=== PATIENT | female | born 1960 | race Caucasian/White ===

== ENCOUNTER → 2017-10-03 | Outpatient (CLI) | payer OTHER | LOC: M.LAB 14:58 | DX: M81.0 Age-related osteoporosis without current pathological fracture (principal) ==

== ENCOUNTER → 2017-10-05 | Outpatient (CLI) | payer OTHER | LOC: M.LAB 09:36 | DX: M81.0 Age-related osteoporosis without current pathological fracture (principal) ==

== ENCOUNTER → 2017-12-19 | Outpatient (CLI) | payer OTHER ==
[2017-12-19 10:17] LABS: ABSOLUTE EOSINOPHILS 0.2 thou/uL (0.0-0.7); ABSOLUTE LYMPHOCYTES 1.5 thou/uL (0.8-5.3); ABSOLUTE MONOCYTES 0.4 thou/uL (0.0-1.2); ABSOLUTE NEUTROPHILS 3.5 thou/uL (1.6-8.1); BASOPHILS 0.7 %; EOSINOPHILS 2.7 %; HEMATOCRIT 44.8 % (37.0-47.0); HEMOGLOBIN 14.9 gm/dL (12.0-15.0); LYMPHOCYTES 26.8 %; MCHC 33.3 g/dL (28.0-37.0); MONOCYTES 7.4 %; MPV 7.1 fl. (7.2-11.1); NUCLEATED RBCS 0 /100WBC; PLATELET COUNT* 290 thou/uL (150-400); POLYS 62.4 %; RBC 4.82 mil/uL (4.20-5.00); WBC 5.6 thou/uL (4.0-11.0)
[2017-12-19 10:49] LABS: ALBUMIN 4.2 g/dL (3.4-5.0); ALKALINE PHOSPHATASE 64 U/L (46-116); ANION GAP 7 mmol/L (7-16); BUN 21 mg/dL (7-18); CALCIUM 9.7 mg/dL (8.5-10.1); CHLORIDE 101 mmol/L (98-107); CHOLESTEROL 301 mg/dL (<200); CO2 30 mmol/L (21-32); GLUCOSE 92 mg/dL (70-99); HDL CHOLESTEROL 123 mg/dL (>40); LDL CHOLESTEROL 164 mg/dL (<100); POTASSIUM 4.3 mmol/L (3.5-5.1); SGOT 16 U/L (15-37); SGPT 25 U/L (30-65); SODIUM 138 mmol/L (136-145); TC:HDL 2.4 Ratio (Not establshd); TOTAL BILIRUBIN 0.4 mg/dL (<0.1-1.0); TOTAL PROTEIN 7.7 g/dL (6.4-8.2); TRIGLYCERIDE 74 mg/dL (<150); VLDL 15 mg/dL (<40)
[2017-12-19 10:52] LABS: SERUM ASSESSMENT Clear
== END ==
LOC: M.LAB 09:56
PROVIDERS: Family Medicine
DX: Z00.00 Encounter for general adult medical examination without abnormal findings (principal); N92.0 Excessive and frequent menstruation with regular cycle; N84.0 Polyp of corpus uteri

== ENCOUNTER → 2018-04-26 | Outpatient (CLI) | payer OTHER | LOC: M.RAD 04-19 13:00 | DX: Z12.31 Encounter for screening mammogram for malignant neoplasm of breast (principal) ==

== ENCOUNTER → 2018-07-05 | Outpatient (CLI) | payer OTHER | LOC: M.RAD 08:29 | DX: S52.615A Nondisplaced fracture of left ulna styloid process, initial encounter for closed fracture (principal); S52.502A Unspecified fracture of the lower end of left radius, initial encounter for closed fracture; Z88.8 Allergy status to other drugs, medicaments and biological substances; W19.XXXA Unspecified fall, initial encounter; Y93.89 Activity, other specified; Y92.89 Other specified places as the place of occurrence of the external cause; Y99.8 Other external cause status ==

== ENCOUNTER → 2018-07-12 | Outpatient (CLI) | payer OTHER | LOC: M.RAD 12:39 | DX: S52.532A Colles' fracture of left radius, initial encounter for closed fracture (principal); S52.612A Displaced fracture of left ulna styloid process, initial encounter for closed fracture; X58.XXXA Exposure to other specified factors, initial encounter; Y93.89 Activity, other specified; Y92.89 Other specified places as the place of occurrence of the external cause; Y99.8 Other external cause status ==

== ENCOUNTER → 2018-07-19 | Outpatient (CLI) | payer OTHER | LOC: M.RAD 12:22 | DX: S52.615D Nondisplaced fracture of left ulna styloid process, subsequent encounter for closed fracture with routine healing (principal); S52.502D Unspecified fracture of the lower end of left radius, subsequent encounter for closed fracture with routine healing; W19.XXXD Unspecified fall, subsequent encounter ==

== ENCOUNTER → 2018-07-26 | Outpatient (CLI) | payer OTHER | LOC: M.RAD 10:31 | DX: S52.512D Displaced fracture of left radial styloid process, subsequent encounter for closed fracture with routine healing (principal); S52.612D Displaced fracture of left ulna styloid process, subsequent encounter for closed fracture with routine healing; X58.XXXD Exposure to other specified factors, subsequent encounter ==

== ENCOUNTER → 2018-08-02 | Outpatient (CLI) | payer OTHER | LOC: M.RAD 12:21 | DX: S52.592D Other fractures of lower end of left radius, subsequent encounter for closed fracture with routine healing (principal); S52.612D Displaced fracture of left ulna styloid process, subsequent encounter for closed fracture with routine healing; X58.XXXD Exposure to other specified factors, subsequent encounter ==

== ENCOUNTER → 2018-08-09 | Outpatient (CLI) | payer OTHER | LOC: M.RAD 12:27 | DX: S52.512A Displaced fracture of left radial styloid process, initial encounter for closed fracture (principal); X58.XXXA Exposure to other specified factors, initial encounter; Y93.89 Activity, other specified; Y92.89 Other specified places as the place of occurrence of the external cause; Y99.8 Other external cause status ==

== ENCOUNTER → 2018-08-16 | Outpatient (CLI) | payer OTHER | LOC: M.RAD 12:32 | DX: S52.612D Displaced fracture of left ulna styloid process, subsequent encounter for closed fracture with routine healing (principal); S52.592D Other fractures of lower end of left radius, subsequent encounter for closed fracture with routine healing; X58.XXXD Exposure to other specified factors, subsequent encounter ==

== ENCOUNTER → 2018-10-18 | Outpatient (CLI) | payer OTHER | LOC: M.RAD 12:58 → M.ULTRA 14:00 → M.RAD 14:20 | DX: N63.20 Unspecified lump in the left breast, unspecified quadrant (principal); Z88.8 Allergy status to other drugs, medicaments and biological substances ==

== ENCOUNTER → 2018-11-06 | Outpatient (CLI) | payer OTHER | LOC: M.LAB 11:26 | DX: M81.0 Age-related osteoporosis without current pathological fracture (principal) ==

== ENCOUNTER → 2018-12-26 | Outpatient (CLI) | payer OTHER | LOC: M.RAD 12-25 15:30 | DX: M85.89 Other specified disorders of bone density and structure, multiple sites (principal); M81.0 Age-related osteoporosis without current pathological fracture; E78.2 Mixed hyperlipidemia; Z78.0 Asymptomatic menopausal state; E28.39 Other primary ovarian failure ==

== ENCOUNTER → 2018-12-26 | Outpatient (CLI) | payer OTHER ==
[2018-12-26 11:19] LABS: HEMOGLOBIN 14.8 gm/dL (12.0-15.0); MPV 6.9 fl. (7.2-11.1); POLYS 55.5 %
[2018-12-26 11:21] LABS: ABSOLUTE EOSINOPHILS 0.1 thou/uL (0.0-0.7); ABSOLUTE LYMPHOCYTES 1.5 thou/uL (0.8-5.3); ABSOLUTE MONOCYTES 0.4 thou/uL (0.0-1.2); ABSOLUTE NEUTROPHILS 2.6 thou/uL (1.6-8.1); EOSINOPHILS 2.6 %; HEMATOCRIT 43.9 % (37.0-47.0); LYMPHOCYTES 31.7 %; MCH 31.5 pg (26.0-34.0); MCHC 33.8 g/dL (28.0-37.0); MONOCYTES 9.2 %; NUCLEATED RBCS 0 /100WBC; PLATELET COUNT* 312 thou/uL (150-400); RBC 4.71 mil/uL (4.20-5.00); RDW-CV 12.8 % (10.5-14.5); WBC 4.6 thou/uL (4.0-11.0)
[2018-12-26 11:42] LABS: ALBUMIN 4.1 g/dL (3.4-5.0); ALKALINE PHOSPHATASE 59 U/L (46-116); ANION GAP 10 mmol/L (7-16); BUN 9 mg/dL (7-18); CALCIUM 9.2 mg/dL (8.5-10.1); CHLORIDE 103 mmol/L (98-107); CHOLESTEROL 285 mg/dL (<200); CO2 28 mmol/L (21-32); CREATININE 0.9 mg/dL (0.6-1.3); GLUCOSE 81 mg/dL (70-99); HDL CHOLESTEROL 112 mg/dL (>40); LDL CHOLESTEROL 158 mg/dL (<100); POTASSIUM 4.3 mmol/L (3.5-5.1); SERUM ASSESSMENT Clear; SGOT 20 U/L (15-37); SGPT 35 U/L (30-65); SODIUM 141 mmol/L (136-145); TC:HDL 2.5 Ratio (Not establshd); TOTAL BILIRUBIN 0.4 mg/dL (<0.1-1.0); TOTAL PROTEIN 7.3 g/dL (6.4-8.2); TRIGLYCERIDE 75 mg/dL (<150); VLDL 15 mg/dL (<40)
== END ==
LOC: M.CT 10:28
PROVIDERS: Family Medicine
DX: Z13.6 Encounter for screening for cardiovascular disorders (principal); E78.2 Mixed hyperlipidemia; M81.0 Age-related osteoporosis without current pathological fracture; Z88.8 Allergy status to other drugs, medicaments and biological substances

== ENCOUNTER → 2019-05-02 | Outpatient (CLI) | payer OTHER | LOC: M.RAD 12:53 | DX: Z12.31 Encounter for screening mammogram for malignant neoplasm of breast (principal); N64.89 Other specified disorders of breast ==

== ENCOUNTER → 2019-07-03 | Outpatient (CLI) | payer OTHER | LOC: M.LAB 08:56 | DX: Z20.828 Contact with and (suspected) exposure to other viral communicable diseases (principal) ==

== ENCOUNTER → 2019-12-26 | Outpatient (CLI) | payer OTHER ==
[2019-12-26 10:18] LABS: HEMOGLOBIN 14.5 gm/dL (12.0-15.0); MCH 31.2 pg (26.0-34.0); MCHC 33.7 g/dL (28.0-37.0); MCV 92.7 fL (80.0-100.0); RBC 4.64 mil/uL (4.20-5.00); RDW-CV 12.8 % (10.5-14.5)
[2019-12-26 10:28] LABS: ALBUMIN 4.6 g/dL (3.4-5.0); ALKALINE PHOSPHATASE 67 U/L (46-116); ANION GAP 7 mmol/L (7-16); BUN 16 mg/dL (7-18); CALCIUM 9.8 mg/dL (8.5-10.1); CHLORIDE 100 mmol/L (98-107); CHOLESTEROL 258 mg/dL (<200); CO2 31 mmol/L (21-32); CREATININE 1.1 mg/dL (0.6-1.3); GLUCOSE 89 mg/dL (70-99); HDL CHOLESTEROL 128 mg/dL (>40); LDL CHOLESTEROL 117 mg/dL (<100); POTASSIUM 4.3 mmol/L (3.5-5.1); SERUM ASSESSMENT Clear; SGOT 28 U/L (15-37); SGPT 30 U/L (30-65); SODIUM 138 mmol/L (136-145); TOTAL BILIRUBIN 0.3 mg/dL (<0.1-1.0); TOTAL PROTEIN 8.2 g/dL (6.4-8.2); TRIGLYCERIDE 67 mg/dL (<150); VLDL 13 mg/dL (<40)
== END ==
LOC: M.LAB 09:45
PROVIDERS: ATTEND Family Medicine
DX: E78.2 Mixed hyperlipidemia (principal); M81.0 Age-related osteoporosis without current pathological fracture; Z91.89 Other specified personal risk factors, not elsewhere classified

== ENCOUNTER → 2020-04-29 | Outpatient (CLI) | payer OTHER | LOC: M.RAD 15:28 | PROVIDERS: ATTEND Family Medicine | DX: Z12.31 Encounter for screening mammogram for malignant neoplasm of breast (principal) ==

== ENCOUNTER → 2020-12-31 | Outpatient (CLI) | payer OTHER ==
[2020-12-31 10:24] LABS: ABSOLUTE EOSINOPHILS 0.1 thou/uL (0.0-0.7); ABSOLUTE LYMPHOCYTES 1.3 thou/uL (0.8-5.3); ABSOLUTE MONOCYTES 0.3 thou/uL (0.0-1.2); ABSOLUTE NEUTROPHILS 2.4 thou/uL (1.6-8.1); BASOPHILS 0.9 %; EOSINOPHILS 2.4 %; HEMATOCRIT 47.2 % (37.0-47.0); HEMOGLOBIN 15.6 gm/dL (12.0-15.0); LYMPHOCYTES 31.3 %; MCH 30.3 pg (26.0-34.0); MCV 91.7 fL (80.0-100.0); MPV 6.9 fl. (7.2-11.1); NUCLEATED RBCS 0 /100WBC; PLATELET COUNT* 290 thou/uL (150-400); POLYS 57.4 %; RBC 5.15 mil/uL (4.20-5.00); WBC 4.2 thou/uL (4.0-11.0)
[2020-12-31 10:36] LABS: ALBUMIN 4.9 g/dL (3.4-5.0); ALKALINE PHOSPHATASE 74 U/L (46-116); ANION GAP 8 mmol/L (7-16); BUN 10 mg/dL (7-18); CALCIUM 10.2 mg/dL (8.5-10.1); CHLORIDE 101 mmol/L (98-107); CHOLESTEROL 280 mg/dL (<200); CO2 31 mmol/L (21-32); GLUCOSE 90 mg/dL (70-99); HDL CHOLESTEROL 140 mg/dL (>40); LDL CHOLESTEROL 128 mg/dL (<100); POTASSIUM 4.1 mmol/L (3.5-5.1); SGOT 26 U/L (15-37); SGPT 40 U/L (30-65); SODIUM 140 mmol/L (136-145); TOTAL BILIRUBIN 0.6 mg/dL (<0.1-1.0); TOTAL PROTEIN 8.7 g/dL (6.4-8.2); TRIGLYCERIDE 60 mg/dL (<150); VLDL 12 mg/dL (<40)
[2020-12-31 10:37] LABS: SERUM ASSESSMENT Clear
[2020-12-31 21:06] LABS: TESTOSTERONE < 3 ng/dL (4-50)
== END ==
LOC: M.RAD 09:46
PROVIDERS: ATTEND Family Medicine
DX: Z00.00 Encounter for general adult medical examination without abnormal findings (principal); M81.0 Age-related osteoporosis without current pathological fracture; E78.2 Mixed hyperlipidemia

== ENCOUNTER → 2021-01-01 | Outpatient (CLI) | payer OTHER | LOC: M.CT 11:02 | PROVIDERS: ATTEND Family Medicine | DX: Z13.6 Encounter for screening for cardiovascular disorders (principal); I25.10 Atherosclerotic heart disease of native coronary artery without angina pectoris ==

== ENCOUNTER → 2021-01-11 | Outpatient (CLI) | payer OTHER | LOC: M.CT 12:39 | PROVIDERS: ATTEND Family Medicine | DX: R91.1 Solitary pulmonary nodule (principal); I70.0 Atherosclerosis of aorta; I25.10 Atherosclerotic heart disease of native coronary artery without angina pectoris ==

== ENCOUNTER → 2021-04-30 | Outpatient (CLI) | payer OTHER | LOC: M.RAD 13:58 | PROVIDERS: ATTEND Family Medicine | DX: Z12.31 Encounter for screening mammogram for malignant neoplasm of breast (principal) ==